=== PATIENT | female | born 1945 | race Hispanic/Latino ===

== ENCOUNTER → 2017-04-06 | Day surgery (SDC) | payer MEDICARE ==
[~2017-04-06] VITALS: Ht 157.5 cm; Wt 94.8 kg
[~2017-04-06] MED LIST: AMLODIPINE BESY10 MG PO; ASPIRIN81 MG PO; ATORVASTATIN CA20 MG PO; LIDOCAINE HCL 2% LOCAL 20 ML VIAL ONE; LISINOPRIL-HCT1 EAC1 PO
--- NOTE | 2017-04-06 08:36 | Operative Report ---
DATE OF PROCEDURE: April 06, 2017 INDICATIONS: Palpitations with history of atrial fibrillation. PROCEDURES PERFORMED: Insertable loop recorder. COMPLICATIONS: None. RECOMMENDATIONS: Remote monitoring. Left anterior chest wall was anesthetized using subcutaneous lidocaine. A [employer] LINQ, serial number [id number], was inserted without complications. Skin approximated using Dermabond. Patient discharged home the same day. Job#: [id number]
== END | disposition home or self-care (01) ==
LOC: CATH LAB 06:14
PROVIDERS: ATTEND Internal Medicine Interventional Cardiology
DX: I48.91 Unspecified atrial fibrillation (principal); I10 Essential (primary) hypertension
CPT/HCPCS: 33282; C1764; J2001

== ENCOUNTER → 2024-03-28 | Outpatient (REF) | payer MEDICARE ==
[~2024-03-28] MED LIST changes: +IOPAMIDOL 370 MG/ML 100 ML INFUS..BTL INJ ONE; -LIDOCAINE HCL 2% LOCAL 20 ML VIAL ONE; +METOPROLOL TARTRATE 25 MG TAB ONE; +METOPROLOL TARTRATE INJ 1 MG/ML VIAL ONE; +NITROGLYCERIN 0.4 MG SUBL ONE; +SODIUM CHLORIDE 0.9% 100 ML ONE
[2024-03-28 08:11] LABS: CREATININE, SERUM 1.07 mg/dL (0.57-1.11)
== END ==
LOC: CT 06:56
PROVIDERS: ATTEND Internal Medicine Interventional Cardiology
DX: I25.119 Atherosclerotic heart disease of native coronary artery with unspecified angina pectoris (principal); R94.39 Abnormal result of other cardiovascular function study
CPT/HCPCS: 36415; 75574; 75580; 82565; 84520; J7050; Q9967